=== PATIENT | female | born 1960 | race Caucasian/White ===

== ENCOUNTER 2017-11-21 19:21 | Observation (INO) ==
[2017-11-21] MEDS ORDERED: 0.9 % Sodium Chloride 1,000 ML IVC ONE (19:32)
--- NOTE | 2017-11-21 19:36 | Emergency Department Note ---
Disposition Clinical Impression: Elevated liver enzymes Urinary tract infection Qualifiers: Urinary tract infection type: acute cystitis Hematuria presence: with hematuria Qualified Code(s): N30.01 - Acute cystitis with hematuria Disposition: Admitted As Inpatient Condition: Undetermined Referrals: Ry Armendariz MD [Family Provider] - NONE,PCP [Primary Care Provider] - Forms: ED Satisfaction Letter Time of Disposition: 20:36 Female Urogenital HPI - General Chief complaint: ED Urogenital-Female Stated complaint: general complaint Time Seen by Provider: 11/21/17 19:29 Source: patient, EMS Mode of arrival: EMS Limitations: no limitations Nursing Notes Reviewed: Yes Vital Signs Reviewed: Yes - History of Present Illness HPI Narrative: 57-year-old female with no previous medical history arrives to the emergency department with complaint of dysuria, cloudy urine and urinary frequency over the course of the past 5 days. The patient states that she went to an urgent care earlier today because she was not feeling well. It noted to be tachycardic. She has been taking AZO [id number]. She states that they will set her from the urgent care to [facility] emergency department with concern for possible urosepsis. The patient denies any other complaints at this time to include chest pain, difficulty breathing, cough, melena, hematochezia, diarrhea, abdominal pain, or any other complaints. The patient does have an episode of nausea and one episode of vomiting. She is very chilled. She is noted to be febrile tachycardic by EMS. - Related Data Home Medications Medication Instructions Recorded Confirmed Azo 11/21/17 Allergies Allergy/AdvReac Type Severity Reaction Status Date / Time No Known Allergies Allergy Verified 11/21/17 18:18 All systems ED: reviewed and negative except as stated. Constitutional: Reports: fever, chills, weakness ENT ED: Denies: dysphagia Cardiovascular: Denies: chest pain Respiratory: Denies: dyspnea Gastrointestinal: Reports: nausea, vomiting. Denies: abdominal pain, diarrhea, constipation, hematemesis, melena, hematochezia Genitourinary: Reports: urgency, dysuria, frequency. Denies: hematuria, discharge, abnormal menses, dyspareunia Musculoskeletal: Reports: back pain (Right flank). Denies: neck pain Integumentary: Denies: rash Past Medical History - Past Medical History Attestation: Yes The following information was validated with the patient. Source: patient, old records reviewed Medical history: Reports: no medical history Surgical history: Reports: non-contributory Psychiatric history: Reports: no psych history - Social History Smoking Status: Current every day smoker Smokeless Tobacco Status: No Alcohol use: Reports: occasionally Drug use: Reports: none Physical Exam - General Limitations: no limitations General appearance: alert, in no apparent distress - Head Head exam: atraumatic, normocephalic, normal inspection - Eye Eye exam: Present: normal appearance, PERRL, EOMI - ENT ENT exam: normal exam, normal oropharynx, mucous membranes moist - Neck Neck exam: Present: normal inspection, full ROM, trachea midline - Chest Chest inspection: Present: normal inspection, symmetric chest wall rise - Respiratory Respiratory exam: Present: normal lung sounds bilaterally - Cardiovascular Cardiovascular exam: Present: normal rhythm, tachycardia, normal heart sounds - Abdominal Exam Abdominal exam: Present: soft, Non-Tender. Absent: tenderness, distention, guarding, rebound, rigidity, heel tap sign, Haynes's sign, Rovsing's sign, tenderness at McBurney's Point, pulsatile mass, hernia - Extremities Exam Extremities exam: Present: normal inspection, full ROM. Absent: tenderness, pedal edema - Neurological Exam Neurological exam: Present: alert, oriented X3, CN II-XII intact, normal gait - Skin Skin exam: Present: warm, dry, intact, normal color Course Vital Signs Temperature 99.2 F 11/21/17 19:26 Pulse Rate 100 11/21/17 19:26 Respiratory Rate 18 11/21/17 19:26 Blood Pressure 135/75 11/21/17 19:26 O2 Sat by Pulse Oximetry 95 11/21/17 19:26 Temperature 99.2 F 11/21/17 19:26 Pulse Rate 100 11/21/17 19:26 Respiratory Rate 18 11/21/17 19:26 Blood Pressure 135/75 11/21/17 19:26 O2 Sat by Pulse Oximetry 95 11/21/17 19:26 Oxygen Delivery Oxygen Delivery Room Air Urogenital-Female - MDM Narrative Medical decision making narrative: Patient's workup in the emergency department demonstrates a urinalysis consistent with UTI. The patient was noted be tachycardic. She was given IV fluids. Patient did not treats no hypotension or elevated lactic acid. Given the patient's tachycardia and is responsive combined with the patient's urinary tract infection we will admit the patient to the hospital. The patient was also noted to have elevated liver enzymes. A right upper quadrant ultrasound was ordered. We will not wait for the patient's results to the patient's be admitted as the patient has no right upper quadrant abdominal discomfort. The patient will be admitted to the hospital at this time with IV fluids. She agrees to plan of care. The patient was also given a gram or Rocephin to cover for her urinary tract infection. No further questions or concerns noted at this time. Accepted by Dr. Hood. - Lab Data Lab results reviewed: Yes I reviewed the patient's lab results. Result diagrams: 11/21/17 19:43 11/21/17 19:43 Lab Results 11/21/17 11/21/17 11/21/17 Range/Units 19:43 19:43 19:43 WBC 11.1 (4.3-11.1) K/mcL RBC 4.37 (3.82-4.97) M/mcL Hgb 14.8 (11.5-15.4) g/dL Hct 43.2 (35.3-44.9) % MCV 98.9 (83.0-100.0) fL MCH 33.9 H (28.0-33.3) pg MCHC 34.3 (31.6-35.5) g/dL RDW 13.0 (11.5-14.5) % Plt Count 159 (140-400) K/mcL MPV 9.9 (9.4-12.4) fL Immature Gran % 0.4 (0-4) % Seg Neutrophils % 83.4 % Lymphocytes % 5.5 % Monocytes % 10.1 % Eosinophils % 0.4 % Basophils % 0.2 % Neutrophils # 9.3 H (1.6-8.9) K/mcL Lymphocytes # 0.6 (0.6-4.6) K/mcL Monocytes # 1.1 (0.0-1.3) K/mcL Eosinophils # 0.0 (0.0-0.6) K/mcL Basophils # 0.0 (0.0-0.2) K/mcL Sodium 136 (136-145) mEq/L Potassium 3.7 (3.5-5.1) mEq/L Chloride 102 (98-107) mEq/L Carbon Dioxide 26 (23-29) mEq/L BUN 9 (6-20) mg/dL Creatinine 0.69 (0.60-1.20) mg/dL Est GFR ( Amer) > 60 (> 60) Est GFR (Non-Af Amer) > 60 (> 60) BUN/Creatinine Ratio 13 (6-26) Glucose 143 H (70-105) mg/dL Calculated Osmolality 283 (280-300) Lactic Acid 0.7 (0.5-2.2) mmol/L Calcium 9.4 (8.6-10.3) mg/dL Magnesium 1.9 (1.6-2.6) mg/dL Total Bilirubin 1.6 H (0.3-1.0) mg/dL Direct Bilirubin 0.5 H (0.0-0.2) mg/dL Indirect Bilirubin 1.1 (0.0-1.2) mg/dL AST 40 H (13-39) Units/L ALT 62 H (7-52) Units/L Alkaline Phosphatase 185 H (34-104) Units/L Serum Total Protein 7.0 (6.4-8.9) g/dL Albumin 4.1 (3.5-5.7) g/dL Globulin 2.9 (2.4-3.5) g/dL Albumin/Globulin Ratio 1.4 (1.1-2.2) Urine Color (Yellow) Urine Clarity (Clear) Urine pH (5.0-8.0) pH Units Ur Specific [place] (1.010-1.025) Urine Protein (Neg-Trace) mg/dL Urine Glucose (UA) (Normal) mg/dL Urine Ketones (Negative) mg/dL Urine Blood (Negative) Urine Nitrite (Negative) Urine Bilirubin (Negative) Urine Urobilinogen (Normal) mg/dL Ur Leukocyte Esterase (Negative) Urine Microscopic RBC (0-3) per hpf Urine Microscopic WBC (0-3) per hpf Ur Squamous Epith Cells (None-Few) per lpf Amorphous Sediment (Few) Urine Bacteria (None-Few) per hpf Ur Culture Indicated? (NO) 11/21/17 Range/Units 20:13 WBC (4.3-11.1) K/mcL RBC (3.82-4.97) M/mcL Hgb (11.5-15.4) g/dL Hct (35.3-44.9) % MCV (83.0-100.0) fL MCH (28.0-33.3) pg MCHC (31.6-35.5) g/dL RDW (11.5-14.5) % Plt Count (140-400) K/mcL MPV (9.4-12.4) fL Immature Gran % (0-4) % Seg Neutrophils % % Lymphocytes % % Monocytes % % Eosinophils % % Basophils % % Neutrophils # (1.6-8.9) K/mcL Lymphocytes # (0.6-4.6) K/mcL Monocytes # (0.0-1.3) K/mcL Eosinophils # (0.0-0.6) K/mcL Basophils # (0.0-0.2) K/mcL Sodium (136-145) mEq/L Potassium (3.5-5.1) mEq/L Chloride (98-107) mEq/L Carbon Dioxide (23-29) mEq/L BUN (6-20) mg/dL Creatinine (0.60-1.20) mg/dL Est GFR ( Amer) (> 60) Est GFR (Non-Af Amer) (> 60) BUN/Creatinine Ratio (6-26) Glucose (70-105) mg/dL Calculated Osmolality (280-300) Lactic Acid (0.5-2.2) mmol/L Calcium (8.6-10.3) mg/dL Magnesium (1.6-2.6) mg/dL Total Bilirubin (0.3-1.0) mg/dL Direct Bilirubin (0.0-0.2) mg/dL Indirect Bilirubin (0.0-1.2) mg/dL AST (13-39) Units/L ALT (7-52) Units/L Alkaline Phosphatase (34-104) Units/L Serum Total Protein (6.4-8.9) g/dL Albumin (3.5-5.7) g/dL Globulin (2.4-3.5) g/dL Albumin/Globulin Ratio (1.1-2.2) Urine Color [place] A (Yellow) Urine Clarity Turbid A (Clear) Urine pH 6.0 (5.0-8.0) pH Units Ur Specific [place] 1.016 (1.010-1.025) Urine Protein 100 H (Neg-Trace) mg/dL Urine Glucose (UA) Normal (Normal) mg/dL Urine Ketones Trace H (Negative) mg/dL Urine Blood Large H (Negative) Urine Nitrite Positive A (Negative) Urine Bilirubin Small H (Negative) Urine Urobilinogen Normal (Normal) mg/dL Ur Leukocyte Esterase Large H (Negative) Urine Microscopic RBC Present (0-3) per hpf Urine Microscopic WBC TNTC H (0-3) per hpf Ur Squamous Epith Cells Present (None-Few) per lpf Amorphous Sediment Present (Few) Urine Bacteria Present (None-Few) per hpf Ur Culture Indicated? YES A (NO)
[2017-11-21 20:04] LABS: Basophils % 0.2 %; Eosinophils % 0.4 %; Hematocrit 43.2 % (35.3-44.9); Hemoglobin 14.8 g/dL (11.5-15.4); Immature Granulocytes % 0.4 % (0-4); Lymphocytes # 0.6 K/mcL (0.6-4.6); Lymphocytes % 5.5 %; Mean Corpuscular HGB Conc 34.3 g/dL (31.6-35.5); Mean Corpuscular Hemoglobin 33.9 pg (28.0-33.3); Mean Corpuscular Volume 98.9 fL (83.0-100.0); Mean Platelet Volume 9.9 fL (9.4-12.4); Monocytes # 1.1 K/mcL (0.0-1.3); Monocytes % 10.1 %; Neutrophils # 9.3 K/mcL (1.6-8.9); Platelet Count 159 K/mcL (140-400); Red Blood Count 4.37 M/mcL (3.82-4.97); Segmented Neutrophils % 83.4 %
[2017-11-21 20:18] LABS: Alanine Aminotransferase 62 Units/L (7-52); Albumin 4.1 g/dL (3.5-5.7); Albumin/Globulin Ratio 1.4 (1.1-2.2); Alkaline Phosphatase 185 Units/L (34-104); Aspartate Amino Transferase 40 Units/L (13-39); BUN/Creatinine Ratio 13 (6-26); Bilirubin,Direct 0.5 mg/dL (0.0-0.2); Bilirubin,Indirect 1.1 mg/dL (0.0-1.2); Bilirubin,Total 1.6 mg/dL (0.3-1.0); Blood Urea Nitrogen 9 mg/dL (6-20); Calcium 9.4 mg/dL (8.6-10.3); Carbon Dioxide 26 mEq/L (23-29); Chloride 102 mEq/L (98-107); Globulin 2.9 g/dL (2.4-3.5); Glucose 143 mg/dL (70-105); Magnesium 1.9 mg/dL (1.6-2.6); Osmolality,Calculated 283 (280-300); Potassium 3.7 mEq/L (3.5-5.1); Sodium 136 mEq/L (136-145); eGFR For Non-African Americans > 60 (> 60)
[2017-11-21 20:24] LABS: Bilirubin,Urine Small (Negative); Blood,Urine Large (Negative); Clarity,Urine Turbid (Clear); Color,Urine Orange (Yellow); Glucose,Urine (UA) Normal (Normal); Ketones,Urine Trace mg/dL (Negative); Leukocyte Esterase,Urine Large (Negative); Nitrite,Urine Positive (Negative); Protein,Urine 100 mg/dL (Neg-Trace); Specific Gravity,Urine 1.016 (1.010-1.025); Urobilinogen,Urine Normal (Normal)
[2017-11-21] MEDS ORDERED: cefTRIAXone 1,000 MG in Water for inj. (sterile) 20 ML 10 ML IVP ONE (20:26)
[2017-11-21 20:33] LABS: Amorphous Sediment,Urine Present (Few); Bacteria,Urine Present per hpf (None-Few); RBC,Urine Present per hpf (0-3); Squamous Epithelial Cell,Urine Present per lpf (None-Few); WBC,Urine TNTC per hpf (0-3)
--- NOTE | 2017-11-21 21:05 | Emergency Department Note ---
Disposition Clinical Impression: Elevated liver enzymes Urinary tract infection Qualifiers: Urinary tract infection type: acute cystitis Hematuria presence: with hematuria Qualified Code(s): N30.01 - Acute cystitis with hematuria Disposition: Admitted As Inpatient Condition: Undetermined General Adult HPI - General Chief complaint: ED Urogenital-Female Stated complaint: general complaint Time Seen by Provider: 11/21/17 19:29 Source: patient, EMS Mode of arrival: EMS Limitations: no limitations - History of Present Illness Pain Scale: 0 - Related Data Home Medications Medication Instructions Recorded Confirmed Azo 11/21/17 Allergies Allergy/AdvReac Type Severity Reaction Status Date / Time No Known Allergies Allergy Verified 11/21/17 18:18 Constitutional: Reports: fever, chills, weakness ENT ED: Denies: dysphagia Cardiovascular: Denies: chest pain Respiratory: Denies: dyspnea Gastrointestinal: Reports: nausea, vomiting. Denies: abdominal pain, diarrhea, constipation, hematemesis, melena, hematochezia Genitourinary: Reports: urgency, dysuria, frequency. Denies: hematuria, discharge, abnormal menses, dyspareunia Musculoskeletal: Reports: back pain (Right flank). Denies: neck pain Integumentary: Denies: rash Past Medical History - Past Medical History Medical history: Reports: no medical history Surgical history: Reports: non-contributory Psychiatric history: Reports: no psych history - Social History Smoking Status: Current every day smoker Smokeless Tobacco Status: No Alcohol use: Reports: occasionally Drug use: Reports: none Physical Exam - General Limitations: no limitations General appearance: alert, in no apparent distress Course Vital Signs Temperature 99.2 F 11/21/17 19:26 Pulse Rate 100 11/21/17 19:26 Respiratory Rate 18 11/21/17 19:26 Blood Pressure 135/75 11/21/17 19:26 O2 Sat by Pulse Oximetry 95 11/21/17 19:26 Temperature 99.2 F 11/21/17 19:26 Pulse Rate 84 11/21/17 20:46 Respiratory Rate 18 11/21/17 20:46 Blood Pressure 109/73 11/21/17 20:46 O2 Sat by Pulse Oximetry 96 11/21/17 20:46 Oxygen Delivery Oxygen Delivery Room Air Medical Decision Making - Lab Data Result diagrams: 11/21/17 19:43 11/21/17 19:43 Lab Results 11/21/17 11/21/17 11/21/17 Range/Units 19:43 19:43 19:43 WBC 11.1 (4.3-11.1) K/mcL RBC 4.37 (3.82-4.97) M/mcL Hgb 14.8 (11.5-15.4) g/dL Hct 43.2 (35.3-44.9) % MCV 98.9 (83.0-100.0) fL MCH 33.9 H (28.0-33.3) pg MCHC 34.3 (31.6-35.5) g/dL RDW 13.0 (11.5-14.5) % Plt Count 159 (140-400) K/mcL MPV 9.9 (9.4-12.4) fL Immature Gran % 0.4 (0-4) % Seg Neutrophils % 83.4 % Lymphocytes % 5.5 % Monocytes % 10.1 % Eosinophils % 0.4 % Basophils % 0.2 % Neutrophils # 9.3 H (1.6-8.9) K/mcL Lymphocytes # 0.6 (0.6-4.6) K/mcL Monocytes # 1.1 (0.0-1.3) K/mcL Eosinophils # 0.0 (0.0-0.6) K/mcL Basophils # 0.0 (0.0-0.2) K/mcL Sodium 136 (136-145) mEq/L Potassium 3.7 (3.5-5.1) mEq/L Chloride 102 (98-107) mEq/L Carbon Dioxide 26 (23-29) mEq/L BUN 9 (6-20) mg/dL Creatinine 0.69 (0.60-1.20) mg/dL Est GFR ( Amer) > 60 (> 60) Est GFR (Non-Af Amer) > 60 (> 60) BUN/Creatinine Ratio 13 (6-26) Glucose 143 H (70-105) mg/dL Calculated Osmolality 283 (280-300) Lactic Acid 0.7 (0.5-2.2) mmol/L Calcium 9.4 (8.6-10.3) mg/dL Magnesium 1.9 (1.6-2.6) mg/dL Total Bilirubin 1.6 H (0.3-1.0) mg/dL Direct Bilirubin 0.5 H (0.0-0.2) mg/dL Indirect Bilirubin 1.1 (0.0-1.2) mg/dL AST 40 H (13-39) Units/L ALT 62 H (7-52) Units/L Alkaline Phosphatase 185 H (34-104) Units/L Serum Total Protein 7.0 (6.4-8.9) g/dL Albumin 4.1 (3.5-5.7) g/dL Globulin 2.9 (2.4-3.5) g/dL Albumin/Globulin Ratio 1.4 (1.1-2.2) Urine Color (Yellow) Urine Clarity (Clear) Urine pH (5.0-8.0) pH Units Ur Specific [place] (1.010-1.025) Urine Protein (Neg-Trace) mg/dL Urine Glucose (UA) (Normal) mg/dL Urine Ketones (Negative) mg/dL Urine Blood (Negative) Urine Nitrite (Negative) Urine Bilirubin (Negative) Urine Urobilinogen (Normal) mg/dL Ur Leukocyte Esterase (Negative) Urine Microscopic RBC (0-3) per hpf Urine Microscopic WBC (0-3) per hpf Ur Squamous Epith Cells (None-Few) per lpf Amorphous Sediment (Few) Urine Bacteria (None-Few) per hpf Ur Culture Indicated? (NO) 11/21/17 Range/Units 20:13 WBC (4.3-11.1) K/mcL RBC (3.82-4.97) M/mcL Hgb (11.5-15.4) g/dL Hct (35.3-44.9) % MCV (83.0-100.0) fL MCH (28.0-33.3) pg MCHC (31.6-35.5) g/dL RDW (11.5-14.5) % Plt Count (140-400) K/mcL MPV (9.4-12.4) fL Immature Gran % (0-4) % Seg Neutrophils % % Lymphocytes % % Monocytes % % Eosinophils % % Basophils % % Neutrophils # (1.6-8.9) K/mcL Lymphocytes # (0.6-4.6) K/mcL Monocytes # (0.0-1.3) K/mcL Eosinophils # (0.0-0.6) K/mcL Basophils # (0.0-0.2) K/mcL Sodium (136-145) mEq/L Potassium (3.5-5.1) mEq/L Chloride (98-107) mEq/L Carbon Dioxide (23-29) mEq/L BUN (6-20) mg/dL Creatinine (0.60-1.20) mg/dL Est GFR ( Amer) (> 60) Est GFR (Non-Af Amer) (> 60) BUN/Creatinine Ratio (6-26) Glucose (70-105) mg/dL Calculated Osmolality (280-300) Lactic Acid (0.5-2.2) mmol/L Calcium (8.6-10.3) mg/dL Magnesium (1.6-2.6) mg/dL Total Bilirubin (0.3-1.0) mg/dL Direct Bilirubin (0.0-0.2) mg/dL Indirect Bilirubin (0.0-1.2) mg/dL AST (13-39) Units/L ALT (7-52) Units/L Alkaline Phosphatase (34-104) Units/L Serum Total Protein (6.4-8.9) g/dL Albumin (3.5-5.7) g/dL Globulin (2.4-3.5) g/dL Albumin/Globulin Ratio (1.1-2.2) Urine Color [place] A (Yellow) Urine Clarity Turbid A (Clear) Urine pH 6.0 (5.0-8.0) pH Units Ur Specific [place] 1.016 (1.010-1.025) Urine Protein 100 H (Neg-Trace) mg/dL Urine Glucose (UA) Normal (Normal) mg/dL Urine Ketones Trace H (Negative) mg/dL Urine Blood Large H (Negative) Urine Nitrite Positive A (Negative) Urine Bilirubin Small H (Negative) Urine Urobilinogen Normal (Normal) mg/dL Ur Leukocyte Esterase Large H (Negative) Urine Microscopic RBC Present (0-3) per hpf Urine Microscopic WBC TNTC H (0-3) per hpf Ur Squamous Epith Cells Present (None-Few) per lpf Amorphous Sediment Present (Few) Urine Bacteria Present (None-Few) per hpf Ur Culture Indicated? YES A (NO) Attestation Statement - Attestation Attestation: I examined this patient and my medical decision-making was reviewed with the Resident Physician. I agree with the documented findings, disposition and treatment plan as described except to the extent set forth below. Patient is urinary tract infection without SIRS here but had a fever and rule out documented by EMS.. Has nausea and vomiting, complains of flank pain that is no CVA tenderness.
[2017-11-21] MEDS ORDERED: Naloxone 0.4 MG/ML INJ IVP PRN (23:21)
--- NOTE | 2017-11-21 23:45 | Internal Med History&Physical ---
Date of Encounter: 11/21/17 Time of Encounter: 22:45 Internal Medicine - H&P: HPI Chief complaint: fever, chills, flank pain Admitted From: Emergency Dept Plans for Post Hospital Care: Home History of present illness: Ms. Nunez is a 57 year old female who presents with 4-5 day history of dysuria, urgency, hesitancy, and decreased urine output. Over the last 24 hours, she developed fevers, chills, night sweats, flank pain, and some nausea but no vomiting. She went to urgent care today where she was tested for the flu, which was negative. She then had urinalysis obtained and was sent to ER for concerns of UTI/polynephritis. In the ER, she had clinical findings concerning for sepsis. She received one fluid bolus, and her initial lactate was normal. Her heart rate improved after initial bolus. Blood and urine cultures were obtained, and she was given Rocephin. She was then admitted to hospitalist service. Upon my assessment of the patient, she appears clinically well and in no distress. She reiterates the above history. She does have some minimal right- sided flank pain, however. She also has some elevated LFTs in the ER, and they obtained an ultrasound confirming cholelithiasis. However, she has no GI symptoms to suggest any biliary colic. She has never had UTI before. She admits that over last 24-36 hours, she has had fevers, chills, flank pain, and night sweats. Appetite and fluid intake have been minimal. She has had significant nausea but no vomiting. Past Med Surg Social Fam HX - Past Medical History Attestation: Yes The following information was validated with the patient. Source: patient, other (ER notes) Medical history: no medical history Psychiatric history: no psych history - Past Surgical History Surgical History: other (tubal ligation) - Social History Smoking Status: Current every day smoker Smokeless Tobacco Status: No Alcohol use: occasionally Drug use: none Current living situation: Home, With Family Activity Level: Independent ambulation, Very active Recent Out of Country Travel Within the Last 8 Weeks: No - Family History Mother Living Status: Still Living Hx Family Genitourinary Disorders: No Father Living Status: Cause of : sepsis Hx Family Genitourinary Disorders: No Internal Medicine - H&P: Meds No Known Home Drugs 11/21/17 [History] 3 Allergy/AdvReac Type Severity Reaction Status Date / Time No Known Allergies Allergy Verified 11/21/17 23:01 - Constitutional Constitutional: chills, fever(s), night sweats - EENT Eyes: no blurry vision, no change in vision Ears: no ear pain, no tinnitus Nose, mouth and throat: no nasal congestion, no sinus pressure, no sore throat - Cardiovascular Cardiovascular ROS IM: no chest pain, no dyspnea, no dyspnea on exertion, no lightheadedness - Respiratory Respiratory: no cough, no hemoptysis, no chest congestion, no excessive phlegm production, no change in phlegm color - Gastrointestinal Gastrointestinal: nausea, no abdominal pain, no diarrhea, no hematemesis, no hematochezia, no melena, no vomiting - Genitourinary Genitourinary: dysuria, flank pain, urinary frequency, urinary urgency, no hematuria - Musculoskeletal Musculoskeletal ROS IM: no arthralgias, no back pain - Integumentary Integumentary IM: no rash, no jaundice - Neurological Neurological ROS: no dizziness, no focal weakness, no frequent falls, no headache(s) - Psychiatric Psychiatric: no anxiety, no depression - Endocrine Endocrine IM: no polydipsia, no polyphagia, no polyuria - Allergic/Immunologic Allergic/Immunologic: no wheezing, no GI upset with certain foods - Constitutional Vitals: Temp Pulse Resp BP Pulse Ox 97.9 F 86 12 128/76 96 11/21/17 22:40 11/21/17 22:40 11/21/17 22:40 11/21/17 22:40 11/21/17 20:46 General appearance: Present: cooperative, A&O X 3, pleasant, no acute distress, answers questions appropriately Exam: no acute distress - Head Head exam: Present: atraumatic, normal inspection - Eye Eye exam: Present: EOMI, PERRL. Absent: scleral icterus Pupils: Present: normal accommodation - ENT ENT exam: Present: mucous membranes moist, normal exam, normal oropharynx - Neck Neck exam general surgery: Present: full ROM, supple. Absent: tenderness, nuchal rigidity, thyromegaly - Respiratory Respiratory exam: Present: CTAB. Absent: chest wall tenderness, rales, rhonchi , wheezes - Cardiovascular Cardiovascular exam: Present: RRR, +S1, +S2. Absent: diastolic murmur, systolic murmur - GI/Abdominal GI/Abdominal exam: Present: normal bowel sounds, soft. Absent: guarding, hepatomegaly, rebound, splenomegaly, tenderness - Extremities Exam Extremities exam: Present: full ROM, warm, radial pulses palpable and symmetrical. Absent: calf tenderness, joint swelling - Back Exam Back exam: Present: CVA tenderness (R), normal inspection. Absent: CVA tenderness (L) - Neurological Exam Neurological exam: Present: alert, CN II-XII intact, oriented X3, no focal deficits, strengths equal and symetr throughout - Psychiatric Psychiatric exam: Present: normal affect, normal mood - Skin Skin exam: Present: dry, warm. Absent: rash Internal Med - H&P Results - Labs CBC & Chem 7: 11/21/17 19:43 11/21/17 19:43 Labs: U/A reviewed and suggestive of UTI - Assessment and plan (1) Pyelonephritis, acute Current Visit: Yes Status: Acute Assessment and plan: 1. Blood and urine cultures obtained. 2. Will treat with Rocephin IV daily and follow clinically. 3. Monitor cultures. 4. If fevers persist beyond the next 48 hours, recommend CT imaging to rule out perinephric abscess. (2) Sepsis Current Visit: Yes Status: Acute Assessment and plan: 1. Likely due to UTI/pyelonephritis. 2. Lactate normal -- will trend. 3. IVF and antibiotics as above. Qualifiers: Sepsis type: sepsis due to unspecified organism Qualified Code(s): A41.9 - Sepsis, unspecified organism (3) Cholelithiasis Current Visit: Yes Status: Acute Assessment and plan: 1. Clinically asymptomatic at the present time. 2. Will need outpatient follow up. 3. Trend LFT's. Qualifiers: Cholelithiasis location: other site Biliary obstruction: without biliary obstruction Qualified Code(s): K80.80 - Other cholelithiasis without obstruction (4) DVT prophylaxis Current Visit: Yes Status: Acute Assessment and plan: 1. Heparin SQ.
[2017-11-22] MEDS: 0.9 % Sodium Chloride w KCl 20 MEQ/1,000 ML MLS IVC SCH ×2 (00:03→08:32)
[2017-11-22 00:29] LABS: Basophils % 0.2 %; Eosinophils % 0.3 %; Immature Granulocytes % 0.3 % (0-4); Lymphocytes # 1.3 K/mcL (0.6-4.6); Lymphocytes % 14.9 %; Mean Corpuscular HGB Conc 33.8 g/dL (31.6-35.5); Mean Corpuscular Hemoglobin 33.7 pg (28.0-33.3); Mean Corpuscular Volume 99.5 fL (83.0-100.0); Mean Platelet Volume 9.7 fL (9.4-12.4); Monocytes # 0.9 K/mcL (0.0-1.3); Neutrophils # 6.5 K/mcL (1.6-8.9); Platelet Count 147 K/mcL (140-400); Red Blood Count 3.92 M/mcL (3.82-4.97); Segmented Neutrophils % 74.3 %
[2017-11-22 00:32] LABS: Hemoglobin 13.2 g/dL (11.5-15.4)
[2017-11-22 00:34] LABS: INR 1.1; Prothrombin Time 12.8 Seconds (9.4-12.1)
[2017-11-22 00:36] LABS: Activated Partial Thrombo Time 28.6 Seconds (26.0-36.0)
[2017-11-22 00:48] LABS: Alanine Aminotransferase 48 Units/L (7-52); Albumin 3.5 g/dL (3.5-5.7); Albumin/Globulin Ratio 1.5 (1.1-2.2); Alkaline Phosphatase 147 Units/L (34-104); Aspartate Amino Transferase 29 Units/L (13-39); BUN/Creatinine Ratio 14 (6-26); Bilirubin,Total 0.9 mg/dL (0.3-1.0); Blood Urea Nitrogen 9 mg/dL (6-20); Calcium 8.5 mg/dL (8.6-10.3); Carbon Dioxide 23 mEq/L (23-29); Chloride 107 mEq/L (98-107); Globulin 2.4 g/dL (2.4-3.5); Glucose 169 mg/dL (70-105); Osmolality,Calculated 291 (280-300); Potassium 3.6 mEq/L (3.5-5.1); Sodium 139 mEq/L (136-145); Total Protein 5.9 g/dL (6.4-8.9); eGFR For Non-African Americans > 60 (> 60)
[2017-11-22] MEDS: *HR* Heparin 5,000 UNIT/ML VIAL SQ SCH ×2 (06:05→16:44)
[2017-11-22] MEDS: cefTRIAXone 2,000 MG in Water for inj. (sterile) 20 ML 20 ML IVP SCH (06:09)
[2017-11-22] MEDS: Acetaminophen 325 MG TABLET PO PRN ×2 (06:15→16:47)
--- NOTE | 2017-11-22 11:00 | Internal Med Progress Note ---
Hospitalist Progress Note - Encounter Date of Encounter: 11/22/17 Time of Encounter: 08:16 - Subjective Interval History: Patient seen and examined this morning. No acute overnight events. Slight nausea. Right back pain improved. Some chills no fevers. No V/D. some constipation. No cp or sob. - Exam Vitals: Temp Pulse Resp BP Pulse Ox 98.8 F 88 15 116/79 96 11/22/17 07:26 11/22/17 07:26 11/22/17 07:26 11/22/17 07:26 11/22/17 07:26 Exam: General: In no acute distress. Conversant. Obese. Respiratory exam: CTAB. no accessory muscle use, rales, rhonchi, wheezes Cardiovascular exam: RRR, +S1, +S2. no murmur, gallop, rubs. GI/Abdominal exam: Non-tender, Non-distended, normal bowel sounds, soft, no peritoneal signs. Rt CVA tenderness. Extremities exam: full ROM, no pedal edema, warm, pulses palpable in b/l lower extremities. no calf tenderness Neurological exam: CN II-XII intact, AO X3, no focal deficits. no pronater drift , facial droop, speech deficit Skin exam: No skin rash, ulcer, purpura or ecchymosis. - Assessment and Plan (1) Pyelonephritis, acute Current Visit: Yes Status: Acute (2) Sepsis Current Visit: Yes Status: Acute (3) Cholelithiasis Current Visit: Yes Status: Acute (4) DVT prophylaxis Current Visit: Yes Status: Acute - Summary of Assessment and Plan Summary of Assessment and Plan: Rt Pyelonephritis - Clinically improving - Possibly precipitated due to constipation. No previous h/o of UTI - f/u Blood and urine cultures obtained. - c/w Rocephin IV daily Sepsis - Intially with signs of sepsis likely secondary to UTI/pyelonephritis. - lactate 0.8 now. - resolved - c/w abx as above Cholelithiasis - Clinically asymptomatic - LFT's normalizing. - outpatient follow up. DVT prophylaxis - Heparin SC - Time Spent with Patient Total time spent is greater than 50% in coordination of care (as documented) at patient's floor/unit and/or counseling patient: Internal Medicine: Result - Labs CBC & Chem 7: 11/22/17 00:18 11/22/17 00:18 Labs: Short CBC 11/22/17 Range/Units 00:18 WBC 8.7 (4.3-11.1) K/mcL Hgb 13.2 D (11.5-15.4) g/dL Hct 39.0 (35.3-44.9) % Plt Count 147 (140-400) K/mcL Neutrophils # 6.5 (1.6-8.9) K/mcL BMP 11/22/17 00:18 Sodium 139 Potassium 3.6 Chloride 107 Carbon Dioxide 23 BUN 9 Creatinine 0.64 Glucose 169 H Calcium 8.5 L Liver Function 11/22/17 Range/Units 00:18 Total Bilirubin 0.9 (0.3-1.0) mg/dL AST 29 (13-39) Units/L ALT 48 (7-52) Units/L Alkaline Phosphatase 147 H (34-104) Units/L Albumin 3.5 (3.5-5.7) g/dL - ABG Interpretation ABG results: PT/INR, D-dimer PT 12.8 Seconds (9.4-12.1) H 11/22/17 00:18 Consult Discharge Plan - Plan Referrals: NONE,PCP [Primary Care Provider] - Ry Armendariz MD [Family Provider] - (2) Sepsis Qualifiers: Sepsis type: sepsis due to unspecified organism Qualified Code(s): A41.9 - Sepsis, unspecified organism (3) Cholelithiasis Qualifiers: Cholelithiasis location: other site Biliary obstruction: without biliary obstruction Qualified Code(s): K80.80 - Other cholelithiasis without obstruction
[2017-11-22] MEDS: traMADol 50 MG TABLET PO PRN ×2 (11:39→20:13)
[2017-11-22 13:20] LABS: Acinetobacter baumannii by PCR Not Detected (Not Detect); Candida albicans by PCR Not Detected (Not Detect); Candida glabrata by PCR Not Detected (Not Detect); Candida krusei by PCR Not Detected (Not Detect); Candida parapsilosis by PCR Not Detected (Not Detect); Candida tropicalis by PCR Not Detected (Not Detect); Enterobacter cloacae Cmplx PCR Not Detected (Not Detect); Enterobacteriaceae by PCR DETECTED (Not Detect); Enterococcus by PCR Not Detected (Not Detect); Klebsiella oxytoca by PCR Not Detected (Not Detect); Klebsiella pneumoniae by PCR Not Detected (Not Detect); Proteus by PCR Not Detected (Not Detect); Pseudomonas aeruginosa by PCR Not Detected (Not Detect); Serratia marcescens by PCR Not Detected (Not Detect); Staphylococcus aureus by PCR Not Detected (Not Detect); Staphylococcus by PCR Not Detected (Not Detect); Streptococcus agalactiae(B)PCR Not Detected (Not Detect); Streptococcus by PCR Not Detected (Not Detect); Streptococcus pneumoniae PCR Not Detected (Not Detect); Streptococcus pyogenes (A) PCR Not Detected (Not Detect); blaKPC Carbapenem-Resist Gene Not Detected (Not Detect); mecA Methicillin-Resist Gene Not Detected (Not Detect); vanA/B Vancomycin-Resist Genes Not Detected (Not Detect)
[2017-11-22 13:21] LABS: Escherichia coli by PCR DETECTED (Not Detect)
[2017-11-22] MEDS: Ondansetron 4 MG/2 ML VIAL IVP PRN ×2 (16:50→20:08)
[2017-11-22] MEDS: Nicotine 21 MG PATCH.TD24 TD SCH (17:10)
[2017-11-22 22:36] LABS: Acinetobacter baumannii by PCR Not Detected (Not Detect); Candida albicans by PCR Not Detected (Not Detect); Candida glabrata by PCR Not Detected (Not Detect); Candida krusei by PCR Not Detected (Not Detect); Candida parapsilosis by PCR Not Detected (Not Detect); Candida tropicalis by PCR Not Detected (Not Detect); Enterobacter cloacae Cmplx PCR Not Detected (Not Detect); Enterobacteriaceae by PCR Not Detected (Not Detect); Enterococcus by PCR Not Detected (Not Detect); Escherichia coli by PCR Not Detected (Not Detect); Klebsiella oxytoca by PCR Not Detected (Not Detect); Klebsiella pneumoniae by PCR Not Detected (Not Detect); Proteus by PCR Not Detected (Not Detect); Pseudomonas aeruginosa by PCR Not Detected (Not Detect); Serratia marcescens by PCR Not Detected (Not Detect); Staphylococcus aureus by PCR Not Detected (Not Detect); Staphylococcus by PCR DETECTED (Not Detect); Streptococcus agalactiae(B)PCR Not Detected (Not Detect); Streptococcus by PCR Not Detected (Not Detect); Streptococcus pneumoniae PCR Not Detected (Not Detect); Streptococcus pyogenes (A) PCR Not Detected (Not Detect); mecA Methicillin-Resist Gene DETECTED (Not Detect)
[2017-11-23] MEDS ORDERED: Nicotine 21 MG PATCH.TD24 TD ONE (11:33)
[2017-11-23] MEDS ORDERED: *HR* Water for inj. (Sterile) 20 ML VIAL IV ONE (11:33)
[2017-11-23] MEDS ORDERED: *HR* Heparin 5,000 UNIT/ML VIAL IVP ONE (11:33)
[2017-11-23] MEDS ORDERED: CefTRIAXone 2,000 MG VIAL IVP ONE (11:33)
--- NOTE | 2017-11-23 13:17 | Internal Med Progress Note ---
Hospitalist Progress Note - Encounter Date of Encounter: 11/23/17 Time of Encounter: 08:45 - Subjective Interval History: Patient seen and examined this morning. No acute overnight events. nausea improved. Right back pain improved. Now absent. no fevers/chills. No V/D. some constipation and headache as not having coffee. No cp or sob. - Exam Vitals: Temp Pulse Resp BP Pulse Ox 98.5 F 78 14 122/77 96 11/23/17 00:30 11/23/17 00:30 11/23/17 00:30 11/23/17 00:30 11/23/17 00:30 Exam: General: In no acute distress. Conversant. Respiratory exam: CTAB. no accessory muscle use, rales, rhonchi, wheezes Cardiovascular exam: RRR, +S1, +S2. no murmur, gallop, rubs. GI/Abdominal exam: Non-tender, Non-distended, normal bowel sounds, soft, no peritoneal signs. Rt CVA tenderness now absent. Extremities exam: full ROM, no pedal edema, warm, pulses palpable in b/l lower extremities. no calf tenderness Neurological exam: CN II-XII intact, AO X3, no focal deficits. no pronater drift, facial droop, speech deficit Skin exam: No skin rash, ulcer, purpura or ecchymosis. - Assessment and Plan (1) Pyelonephritis, acute Current Visit: Yes Status: Acute (2) Sepsis Current Visit: Yes Status: Acute (3) Cholelithiasis Current Visit: Yes Status: Acute (4) DVT prophylaxis Current Visit: Yes Status: Acute - Summary of Assessment and Plan Summary of Assessment and Plan: Rt Pyelonephritis - Clinically improving - Possibly precipitated due to constipation. No previous h/o of UTI - Urine cultures growing Ecoli. Blood cultures with mecA resitant staph. No staph aureas. Appears to be contaminant. Will redraw blood culture. - c/w Rocephin IV daily Sepsis - Intially with signs of sepsis likely secondary to UTI/pyelonephritis. - lactate 0.8 now. - resolved - c/w abx as above Cholelithiasis - Clinically asymptomatic - LFT's normalizing. - outpatient follow up. DVT prophylaxis - Heparin SC - Time Spent with Patient Total time spent is greater than 50% in coordination of care (as documented) at patient's floor/unit and/or counseling patient: Internal Medicine: Result - Labs CBC & Chem 7: 11/22/17 00:18 11/22/17 00:18 - ABG Interpretation ABG results: PT/INR, D-dimer PT 12.8 Seconds (9.4-12.1) H 11/22/17 00:18 Consult Discharge Plan - Plan Referrals: Ry Armendariz MD [Family Provider] - NONE,PCP [Primary Care Provider] - (2) Sepsis Qualifiers: Sepsis type: sepsis due to unspecified organism Qualified Code(s): A41.9 - Sepsis, unspecified organism (3) Cholelithiasis Qualifiers: Cholelithiasis location: other site Biliary obstruction: without biliary obstruction Qualified Code(s): K80.80 - Other cholelithiasis without obstruction
[2017-11-23] MEDS: *HR* Heparin 5,000 UNIT/ML VIAL SQ SCH ×2 (14:00→16:50)
[2017-11-23] MEDS: cefTRIAXone 2,000 MG in Water for inj. (sterile) 20 ML 20 ML IVP SCH (14:00)
--- NOTE | 2017-11-23 14:00 | Electrocardiograph Report ---
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
[2017-11-23] MEDS: Nicotine 21 MG PATCH.TD24 TD SCH (14:01)
[2017-11-23] MEDS: traMADol 50 MG TABLET PO PRN (20:08)
[2017-11-24] MEDS: cefTRIAXone 2,000 MG in Water for inj. (sterile) 20 ML 20 ML IVP SCH (06:23)
[2017-11-24] MEDS: *HR* Heparin 5,000 UNIT/ML VIAL SQ SCH (06:32)
[2017-11-24] MEDS: Nicotine 21 MG PATCH.TD24 TD SCH (07:55)
[2017-11-24 10:32] VITALS: BP 124/74
--- NOTE | 2017-11-24 10:33 | Discharge Summary ---
- NOTES TO OUTPATIENT PROVIDER Notes to Outpatient Provider: To continue antibiotics for 7 more days to complete 10 day course. Orders not resulted at time of discharge: Pending orders 11/21/17 19:43 Culture,Blood [BC] Stat 11/23/17 08:35 Culture,Blood [BC] Routine 11/23/17 08:42 Culture,Blood [BC] Routine Date of Encounter: 11/24/17 Time of Encounter: 12:23 - Discharge Diagnosis (1) Pyelonephritis, acute Priority: Primary Status: Acute (2) Sepsis Priority: Primary Status: Acute Qualifiers: Sepsis type: sepsis due to unspecified organism Qualified Code(s): A41.9 - Sepsis, unspecified organism (3) Cholelithiasis Priority: Secondary Status: Acute Qualifiers: Cholelithiasis location: other site Biliary obstruction: without biliary obstruction Qualified Code(s): K80.80 - Other cholelithiasis without obstruction (4) DVT prophylaxis Priority: Secondary Status: Acute Hospital course: Ms. Nunez is a 57 year old female with no past medical history was admitted for fevers chills night sweats and right flank pain. Patient was found to have pyelonephritis on the right side. She had some signs of sepsis initially which resolved quickly with antibiotics and fluids. She was started on Rocephin. Urine cultures grew Escherichia coli pansensitive except to ampicillin. Blood culture also grew MRS which was likely contaminant as she improved clinically on Rocephin. She also had elevated LFTs for which ultrasound was done which showed cholelithiasis. However patient was asymptomatic for cholelithiasis and LFTs normalize on the second day. Cholelithiasis asymptomatic and to be managed as outpatient if needed. Patient would be discharged on oral cefdinir for 7 more days. Patient to follow with PCP in one week. Discharge discussed with: patient, nurse, social work, case management - Time Spent with Patient Total time spent providing and/or coordinating discharge services: Greater than 30 minutes Specific discharge activities: 40 - Discharge Medications Prescriptions: Cefdinir [Omnicef] 300 mg PO BID 7 Days #14 capsule Home Medications: Cefdinir [Omnicef] 300 mg PO BID 7 Days #14 capsule 11/24/17 [Rx] Allergies/Adverse Reactions: Allergy/AdvReac Type Severity Reaction Status Date / Time No Known Allergies Allergy Verified 11/21/17 23:01 Date of admission: 11/21/17 20:52 Primary care physician: PCP NONE Discharging clinician: Elham Linda - Constitutional Vitals: Temp Pulse Resp BP Pulse Ox 98.3 F 68 14 114/72 94 11/24/17 06:54 11/24/17 06:54 11/24/17 06:54 11/24/17 06:54 11/24/17 06:54 General appearance: Present: cooperative, A&O X 3, pleasant, no acute distress, answers questions appropriately Exam: General: In no acute distress. Conversant. Respiratory exam: CTAB. no accessory muscle use, rales, rhonchi, wheezes Cardiovascular exam: RRR, +S1, +S2. no murmur, gallop, rubs. GI/Abdominal exam: Non-tender, Non-distended, normal bowel sounds, soft, no peritoneal signs. Rt CVA tenderness absent. Extremities exam: full ROM, no pedal edema, warm, pulses palpable in b/l lower extremities. no calf tenderness Neurological exam: CN II-XII intact, AO X3, no focal deficits. no pronater drift, facial droop, speech deficit Skin exam: No skin rash, ulcer, purpura or ecchymosis. - Patient Status Disposition: Home, Self-Care Condition: Fair - Discharge Instructions Instructions: Cefdinir (By mouth), Urinary Tract Infection in Women (DC) Follow Up With: NONE,PCP [Primary Care Provider] - (Patient prefers to find own primary care physician. Thank you) - Diet and Activity Activity: resume usual activities as tolerated
[2017-11-24] MEDS: Acetaminophen 325 MG TABLET PO PRN (11:28)
== END 2017-11-24 11:34 | disposition home or self-care (01) ==
LOC: EMEROOARM 19:21 → 3ANU 19:21 → SUATTDRO 20:52 → 3ANU 22:15
PROVIDERS: ADMIT Pediatrics; ATTEND Internal Medicine